=== PATIENT | male | born 1945 | race Caucasian/White ===

== ENCOUNTER 2016-08-08 12:23 | Emergency (ER) | payer MEDICARE, OTHER ==
[~2016-08-08 12:23] MED LIST: ACETAMINOPHEN500 M1 PO; ASCORBIC ACID500 MG PO; EFFEXOR XR150 MG PO; FERROUS SULFAT325 M1 PO; FLOMAX0.4 MG PO; GLUCOSAMINE &1 EAC1 PO; JANUMET 50-5001 EACH PO; MICARDIS HCT 81 EACH PO; MIRALAX17 G1 PO; MOBIC7.5 MG PO; STOOL SOFTENER1 EACH PO; TRAMADOL HCL50 MG PO; VITAMIN D5000 UNIT PO; ZOCOR40 MG PO
[2016-08-08 13:41] LABS: BASOPHIL 0.1 % (0-2); EOSINOPHIL 0.3 % (0-7); HCT 33.6 % (42.0-52.0); HGB 11.4 g/dl (13.2-18.0); LYMPHOCYTE 11.7 % (15-48); MCH 32.7 pg (25.0-31.0); MCHC 33.9 g/dL (32.0-36.0); MCV 96.3 fL (78.0-100.0); MONOCYTE 9.3 % (0-12); MPV 8.9 fL (6.0-9.5); NEUTROPHIL 78.6 % (41-80); PLT 265 K/uL (150-400); RBC 3.49 M/uL (4.70-6.00); RDW 12.3 % (11.5-14.0)
[2016-08-08 13:51] LABS: INR 1.01 (0.9-1.2); PROTHROMBIN TIME 12.9 SECONDS (11.7-14.0)
[2016-08-08 13:58] LABS: BILIRUBIN NEGATIVE (NEGATIVE); BLOOD NEGATIVE Ery/uL (NEGATIVE); CLARITY CLEAR (CLEAR); COLOR COLORLESS (YELLOW); GLUCOSE (U) NORMAL (NORMAL); KETONE (U) NEGATIVE (NEGATIVE); LEUKOCYTES NEGATIVE Leu/uL (NEGATIVE); NITRITE NEGATIVE (NEGATIVE); PROTEIN NEGATIVE (NEGATIVE); SPECIFIC GRAVITY <=1.005 (1.001-1.030); UROBILINOGEN 0.2 mg/dL (0.2-1.0)
[2016-08-08 14:06] LABS: PRO-BNP 93 pg/mL (0-125); TROPONIN T < 0.010 ng/mL
[2016-08-08 14:09] LABS: ALBUMIN 4.4 g/dL (3.4-4.8); BILIRUBIN - TOTAL 0.3 mg/dL (0.1-1.0); CREATININE 0.7 mg/dL (0.7-1.2); GLOBULIN (CALCULATION) 2.5 g/dL (2.2-4.2); TOTAL PROTEIN 6.9 g/dL (6.4-8.3)
[2016-08-08 14:11] LABS: AMPHETAMINES NEGATIVE (NEGATIVE); BARBITURATES NEGATIVE (NEGATIVE); BENZODIAZEPINES NEGATIVE (NEGATIVE); COCAINE NEGATIVE (NEGATIVE); MARIJUANA (THC) NEGATIVE (NEGATIVE); METHADONE NEGATIVE (NEGATIVE); TRICYCLIC ANTIDEPRESSANT NEGATIVE (NEGATIVE)
== END 2016-08-08 20:00 | disposition other institution (70) ==
LOC: FER 12:23
PROVIDERS: Internal Medicine
DX: R41.82 Altered mental status, unspecified (principal); M25.551 Pain in right hip; E11.9 Type 2 diabetes mellitus without complications; Z79.84 Long term (current) use of oral hypoglycemic drugs
CPT/HCPCS: 36415; 70450; 72170; 80053; 80305; 81003; 83880; 84484; 85025; 85610; 85730

== ENCOUNTER 2020-05-22 13:23 | Emergency (ER) | payer MEDICARE, OTHER ==
[~2020-05-22 13:23] MED LIST changes: +CELEBREX **OUT100 MG PO; +CELEXA20 MG PO; +FOLIC ACID1 MG PO; +GLUCOTROL XL5 MG PO; +HEMOCYTE PLUS1 EACH PO; +NEURONTIN100 M1 PO; +NEURONTIN100 MG PO; +VITAMIN B-121000 MC1 PO; +ZOFRAN4 M1 PO
[2020-05-22 14:50] LABS: BASOPHIL 0.2 % (0-2); EOSINOPHIL 2.2 % (0-7); HCT 34.6 % (42.0-52.0); HGB 11.4 g/dl (13.2-18.0); LYMPHOCYTE 9.8 % (15-48); MCH 31.4 pg (25.0-31.0); MCHC 32.9 g/dL (32.0-36.0); MCV 95.3 fL (78.0-100.0); MPV 9.4 fL (6.0-9.5); NEUTROPHIL 80.3 % (41-80); PLT 199 K/uL (150-400); RBC 3.63 M/uL (4.70-6.00); RDW 12.6 % (11.5-14.0); WBC 10.4 K/uL (4.0-10.5)
[2020-05-22 14:52] LABS: ALBUMIN 2.5 g/dL (3.4-5.0); BILIRUBIN - TOTAL 0.2 mg/dL (0.2-1.0); BUN/CREAT RATIO (CALC) 21.9 RATIO; CREATININE 0.64 mg/dL (0.67-1.17); GLOBULIN (CALCULATION) 3.8 g/dL; NRBC 0; POTASSIUM 3.5 mmol/L (3.5-5.1); TOTAL PROTEIN 6.3 g/dL (6.4-8.2)
[2020-05-22] MEDS ORDERED: LEVAQUIN750 MG PO (18:45)
[2020-05-22] MEDS ORDERED: VENTOLIN HFA IN18 GM INH (18:45)
[2020-05-22] MEDS ORDERED: PREDNISONE 20MG20 MG PO (18:45)
== END 2020-05-22 20:20 | disposition home or self-care (01) ==
LOC: FER 13:23
PROVIDERS: Nurse Practitioner Family
DX: J18.9 Pneumonia, unspecified organism (principal); R10.9 Unspecified abdominal pain; R11.2 Nausea with vomiting, unspecified; R19.7 Diarrhea, unspecified; E11.9 Type 2 diabetes mellitus without complications; G30.9 Alzheimer's disease, unspecified; F02.80 Dementia in other diseases classified elsewhere, unspecified severity, without behavioral disturbance, psychotic disturbance, mood disturbance, and anxiety; Z79.84 Long term (current) use of oral hypoglycemic drugs
CPT/HCPCS: 36415; 80053; 85025; J0696; J7030; Q9967

== ENCOUNTER 2020-05-29 12:28 | Emergency (ER) | payer MEDICARE, OTHER ==
[~2020-05-29 12:28] MED LIST changes: +LEVAQUIN750 MG PO; +PREDNISONE 20MG20 MG PO; +VENTOLIN HFA IN18 GM INH
== END 2020-05-29 14:55 | disposition home or self-care (01) ==
LOC: FER 12:28
DX: S70.02XA Contusion of left hip, initial encounter (principal); E10.9 Type 1 diabetes mellitus without complications; U07.1 COVID-19; F03.90 Unspecified dementia, unspecified severity, without behavioral disturbance, psychotic disturbance, mood disturbance, and anxiety; W05.0XXA Fall from non-moving wheelchair, initial encounter; Y92.129 Unspecified place in nursing home as the place of occurrence of the external cause
CPT/HCPCS: 73502